=== PATIENT | male | born 1965 | race Caucasian/White ===

== ENCOUNTER → 2022-06-27 16:28 | Outpatient (CLI) | payer OTHER, SELFPAY ==
[2022-06-27 17:26] LABS: Anion Gap 11.5 mEq/L (5-15); Blood Urea Nitrogen 18 mg/dl (9-20); Calcium 8.8 mg/dl (8.4-10.2); Carbon Dioxide 29 mmol/L (22.0-30.0); Chloride 105 mmol/L (98-107); Estimated Glomerular Filt Rate 87 ml/min (>60); GFR (African American) 105 ML/MIN (>60); Glucose 108 mg/dl (74-100); Potassium 4.5 mmoL/L (3.5-5.1); Sodium 141 mmol/L (136-145)
[2022-06-27 17:27] LABS: Basophils # 0.1 K/mm3 (0-0.2); Basophils % 0.9 % (0.1-2.0); Eosinophils # 0.2 K/mm3 (0.0-0.4); Eosinophils % 1.9 % (0.1-12.0); Hematocrit 46.3 % (42.0-52.0); Hemoglobin 14.6 g/dL (14.1-18.0); Lymphocytes # 2.4 K/mm3 (0.7-4.5); Lymphocytes % 23.3 % (10-50); Mean Corpuscular HGB Conc 31.5 g/dL (31.8-35.4); Mean Corpuscular Hemoglobin 29.5 pg (27.0-31.2); Mean Corpuscular Volume 93.5 fl (80-94); Mean Platelet Volume 8.1 fl (7.4-10.4); Monocytes # 0.6 K/mm3 (0.1-1.0); Monocytes % 5.8 % (1.7-9.3); Platelet Count 402 K/mm3 (142-424); Red Blood Count 4.95 M/mm3 (4.60-6.20); White Blood Count 10.2 K/mm3 (4.8-10.8)
[2022-06-27 18:38] LABS: Troponin I < 0.01 ng/ml (0.00-0.034)
== END ==
PROVIDERS: PCP Emergency Medicine; Visit Provider Physician Assistant
DX: R06.09 Other forms of dyspnea (principal); R07.89 Other chest pain; R42 Dizziness and giddiness; I49.1 Atrial premature depolarization; I10 Essential (primary) hypertension
CPT/HCPCS: 36415; 80048; 84484; 85025; 93306

== ENCOUNTER 2022-07-11 07:27 | Day surgery (SDC) | payer OTHER, SELFPAY ==
[2022-07-11] VITALS (15 sets, daily range): BP systolic 96–130; BP diastolic 61–86; PULSE 52–77; RESP 12–61; O2SAT 95–97; BMI 35.2
--- NOTE | 2022-07-11 07:11 | IR_ITS ---
APPROVED REPORT Patient Location: Outpatient Medical Research Scientist: PANFILO Sherman RT (R) PROCEDURES Left heart catheterization Left ventriculogram Selective coronary angiogram FFR to the LAD Drug-eluting stent deployment to the mid left anterior descending artery INDICATION Coronary artery disease, Recalcitrant angina pectoris, Numerous risk factors for coronary disease, Ischemic response to adenosine with an FFR index of 0.80 Informed consent was obtained prior to the procedure. COMPLICATIONS None Estimated Blood Loss: Less than 10 mls TECHNIQUE One percent lidocaine used to anesthetize the right anterior aspect of the wrist. The right radial artery was accessed via the Seldinger technique. A 6 [place] sheath was placed in the right radial artery. 2.5 mg of verapamil, 800 mcg of nitroglycerin, 1mg Lidocaine and 5000 U Heparin were given through the arterial sheath. The papa catheter was also used to perform left heart catheterization, left ventriculogram and selective coronary angiogram. At the end of the diagnostic angiogram therapeutic heparin was administered giving a therapeutic ACT and the guide catheter placed in the left main artery followed by a Choice PT extra-support wire. A nevus FFR catheter was equalized in the left main artery and then advanced into the distal LAD followed by infusion of adenosine per protocol. The FFR index dropped to 0.80 making this a positive test therefore 3.5 x 15 mm resolute Slava stent was deployed at 18 ted in the mid LAD reducing the hemodynamically severe stenosis to 0%. JONE III flow was present before and after the procedure. At the end the procedure the apparatus was removed the sheath was removed good hemostasis was achieved using TR banding patient was transferred to the postop putting in stable condition ANGIOGRAPHIC RESULTS The left main artery Normal The left anterior descending artery Proximally normal with a mid vessel concentric 40% stenosis The circumflex artery Nondominant with mild luminal irregularities The right coronary artery Large dominant with mild luminal irregularities The EVANS ventriculogram reveals Normal 65% The left ventricular end-diastolic pressure 10 mmHg IMPRESSION Angiographically mild to moderate mid LAD disease which proved to have severe hemodynamic consequences producing an FFR index of 0.80 Successful stenting of the hemodynamically severe stenosis reduced to 0% with 1 drug-eluting stent Normal ejection fraction Normal left ventricular NaSal pressure PLAN 1. Dual antiplatelet therapy 2. LDL less than 55 to be achieved with high intensity statin 3. Avoidance of tobacco products 4. Risk factor modification 5. Cardiac rehabilitation Electronically signed by : Austin Lorenzo MD 07/11/2022 09:50:43
[2022-07-11 07:40] LABS: Coronavirus 19, PCR Not Detected (NotDetected); Influenza A, PCR Not Detected (NotDetected); Influenza B, PCR Not Detected (NotDetected)
--- NOTE | 2022-07-11 10:09 | SUR.PHASEII ---
Officer remains at patient beside, pt is clam and pleasant, no needs addressed.
[2022-07-11 10:20] LABS: CATHL Activated Clotting Time 369 SEC (74-125)
--- NOTE | 2022-07-11 14:19 | [facility]H.PHACL ---
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 PATIENT IS CURRENTLY TAKING ASPIRIN 81 MG DAILY AND CARVEDILOL 6.25 MG BID. MD NOT WANTING CRISTY/ARB AT THIS TIME.
== END 2022-07-11 14:30 | disposition home or self-care (01) ==
PROVIDERS: PCP Emergency Medicine; Visit Provider Internal Medicine
DX: I25.118 Atherosclerotic heart disease of native coronary artery with other forms of angina pectoris (principal); I49.1 Atrial premature depolarization; I10 Essential (primary) hypertension; Z82.49 Family history of ischemic heart disease and other diseases of the circulatory system; F17.210 Nicotine dependence, cigarettes, uncomplicated; Z20.822 Contact with and (suspected) exposure to COVID-19
CPT/HCPCS: 85347; 92928; 93458; 93571; 99152; 99153; C1725; C1769; C1874; C9600; C9803; J0153; J1644; Q9967; U0003; U0005